=== PATIENT | female | born 1945 | race African-American/Black ===

== ENCOUNTER 2017-04-26 06:22 | Day surgery (SDC) | payer MEDICARE, BC ==
--- NOTE | ~2017-04-26 | EGD ---
EGD REPORT [facility] [address] [address] NAME: PJ QUINTERO : [birth year] STATUS : REG [facility] [id number] AGE: 71 ADM/REG DATE : 04/26/17 MR#: [id number] REPORT SERV DATE: 04/26/17 DICTATED BY: FELIPE MILAN DATE: 04/26/17 REPORT STATUS : Draft TRANSCRIBED BY: [facility] DATE: 04/26/17 Endoscopy Center Patient Name: Pj Quintero Date of : 1945 Attending MD: FELIPE MILAN MD Procedure Date No Time: 04/26/2017 Procedure: Colonoscopy Indications: Screening for colorectal malignant neoplasm Referring MD: NA MA Medicines: Monitored Anesthesia Care Complications: No immediate complications. Procedure: Pre-Anesthesia Assessment: - ASA Grade Assessment: II - A patient with mild systemic disease. After I obtained informed consent, the scope was passed under direct vision. Throughout the procedure, the patient's blood pressure, pulse, and oxygen saturations were monitored continuously. The CF [id number] was introduced through the anus and advanced to the terminal ileum, with identification of the appendiceal orifice and IC valve. The colonoscopy was performed without difficulty. The patient tolerated the procedure well. The quality of the bowel preparation was adequate. Findings: The digital rectal exam was normal. Pertinent negatives include no palpable rectal lesions. Multiple diverticula were found in the sigmoid colon and in the descending colon. Hemorrhoids were found during endoscopy and were mild. A sessile polyp was found in the ascending colon. The polyp was 2 mm in size. The polyp was removed with a cold biopsy forceps. Resection and retrieval were complete. A sessile polyp was found in the transverse colon. The polyp was 5 mm in size. The polyp was removed with a cold biopsy forceps. Resection and retrieval were complete. Impression: - Diverticulosis in the sigmoid colon and in the descending colon. - Hemorrhoids. - One 2 mm polyp in the ascending colon. Resected and retrieved. - One 5 mm polyp in the transverse colon. Resected and retrieved. EGD REPORT [address] [address] NAME: PJ QUINTERO : [birth year] STATUS : REG [facility] PAT#: [id number] AGE: 71 ADM/REG DATE : 04/26/17 MR#: [id number] REPORT SERV DATE: 04/26/17 DICTATED BY: FELIPE MILAN DATE: 04/26/17 REPORT STATUS : Draft TRANSCRIBED BY: [employer] DATE: 04/26/17 Recommendation: - Patient has a contact number available for emergencies. The signs and symptoms of potential delayed complications were discussed with the patient. Return to normal activities tomorrow. Written discharge instructions were provided to the patient. - Regular diet. - Continue present medications. - Await pathology results. - Repeat colonoscopy for surveillance based on pathology results. - Return to GI clinic PRN. Procedure Code(s): --- Professional --- 15863, Colonoscopy, flexible, proximal to splenic flexure; with biopsy, single or multiple Diagnosis Code(s): --- Professional --- K64.9, Unspecified hemorrhoids K57.30, Diverticulosis of large intestine without perforation or abscess without bleeding D12.3, Benign neoplasm of transverse colon D12.2, Benign neoplasm of ascending colon Z12.11, Encounter for screening for malignant neoplasm of colon CPT copyright 2013 [employer]. All rights reserved. The codes documented in this report are preliminary and upon pickling operator review may be revised to meet current compliance requirements. FELIPE MILAN MD 04/26/2017 8:24 AM This report has been signed electronically. Number of Addenda: 0 Note Initiated On: 04/26/2017 8:00 AM Scope Withdrawal Time 0 hours 8 minutes 4 seconds [address] [place] [id number]
[~2017-04-26 06:22] MED LIST: ASAB PO; C5 PO; CALTRA600D PO; FISH OIL300 MG PO; LIVALO2 MG PO; PCET PO; POTASSIUM GLUCONATE PO; PRIN10 PO; ZOFRAN4 PO
== END 2017-04-26 23:59 | disposition home or self-care (01) ==
LOC: DMU 06:22
PROVIDERS: Internal Medicine Gastroenterology
PROC: 0DBL8ZZ Excision of Transverse Colon, Via Natural or Artificial Opening Endoscopic (ICD-10-PCS; 2017-04-26)
PROC: 0DBK8ZZ Excision of Ascending Colon, Via Natural or Artificial Opening Endoscopic (ICD-10-PCS; principal; 2017-04-26 08:00)
DX: Z12.11 Encounter for screening for malignant neoplasm of colon (principal); D12.2 Benign neoplasm of ascending colon; D12.3 Benign neoplasm of transverse colon; K57.30 Diverticulosis of large intestine without perforation or abscess without bleeding; K64.9 Unspecified hemorrhoids; I10 Essential (primary) hypertension; E78.00 Pure hypercholesterolemia, unspecified; G47.33 Obstructive sleep apnea (adult) (pediatric); E66.01 Morbid (severe) obesity due to excess calories; Z68.36 Body mass index [BMI] 36.0-36.9, adult; Z96.651 Presence of right artificial knee joint; Z87.891 Personal history of nicotine dependence; Z79.82 Long term (current) use of aspirin; Z79.899 Other long term (current) drug therapy; Z98.890 Other specified postprocedural states
CPT/HCPCS: 88305